=== PATIENT | male | born 1965 | race Caucasian/White ===

== ENCOUNTER 2021-04-03 12:08 | Emergency (ER) | payer BC ==
--- NOTE | 2021-04-03 12:28 | EDM.PDOC ---
ED HPI GENERAL MEDICAL PROBLEM - General Chief Complaint: Upper Extremity Injury/Pain Stated Complaint: [facility] Time Seen by Provider: 04/03/21 12:19 Source of Information: Reports: Patient, RN Notes Reviewed History Limitations: Reports: No Limitations - History of Present Illness INITIAL COMMENTS - FREE TEXT/NARRATIVE: Patient is a 55-year-old male who presents to the ER for the evaluation of his left shoulder injury. He was brought in by [facility]. He and his family were in [place], doing a trail ride when the horses got spooked by a d eer, and he ended up getting bucked off the horse. Noted that he landed on his left shoulder. He has had pain with any sort of movement of the shoulder since then. He did get some fentanyl in route to the ER via ambulance service and he notes this did help some of the pain. He is complaining of some left-handed numbness at times. He did not hit his head, he did not lose consciousness. Patient is from [facility], and has a primary care provider there. He denies any major health concerns at today's visit. Patient denies any other sick-like symptoms, fever/chills, cough/shortness of breath, nausea/vomiting/diarrhea. 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: IV/IO Left Shoulder Pain Score (Numeric/FACES): 4 - Related Data Allergies Allergy/AdvReac Type Severity Reaction Status Date / Time No Known Allergies Allergy Verified 04/03/21 12:21 Home Meds: Home Meds Hydrocodone/Acetaminophen [Hydrocodone-Acetamin 5-325 mg] 1 each PO Q6H PRN #6 tablet 04/03/21 [Rx] Lansoprazole [Prevacid] 30 mg PO BID 04/03/21 [History] Losartan [Cozaar] 25 mg PO DAILY 04/03/21 [History] Rosuvastatin Calcium [Crestor] 40 mg PO DAILY 04/03/21 [History] Past Medical History Cardiovascular History: Reports: Afib, High Cholesterol, Hypertension - Past Surgical History HEENT Surgical History: Reports: Other (See Below) Other HEENT Surgeries/Procedures: typanoplasty Cardiovascular Surgical History: Reports: Cardiac Ablation Neurological Surgical History: Reports: Intracranial Review of Systems - Review of Systems Review Of Systems: Comprehensive ROS is negative, except as noted in HPI. ED EXAM, GENERAL - Physical Exam Exam: See Below Exam Limited By: No Limitations General Appearance: Alert, WD/WN, No Apparent Distress Respiratory/Chest: No Respiratory Distress, Lungs Clear, Normal Breath Sounds, No Accessory Muscle Use, Chest Non-Tender Cardiovascular: Normal Peripheral Pulses, Regular Rate, Rhythm, No Edema Peripheral Pulses: 2+: Radial (L), Radial (R) Extremities: Normal Inspection, Normal Capillary Refill, Limited Range of Motion (of left shoulde d/t pain; no visible deformity is apparent) Neurological: Alert, Oriented, Normal Cognition, No Motor/Sensory Deficits Psychiatric: Normal Affect, Normal Mood Skin Exam: Warm, Dry, Intact, Normal Color, No Rash Course - Vital Signs Last Recorded V/S: Last Vital Signs Temp 97.2 F 04/03/21 12:13 Pulse 64 04/03/21 12:13 Resp 16 04/03/21 12:13 BP 110/78 04/03/21 12:13 Pulse Ox 100 04/03/21 12:13 - Orders/Labs/Meds Orders: Active Orders 24 hr Category Date Time Status Shoulder Comp Lt [CR] Stat Exams 04/03/21 12:23 Ordered DME for Discharge [COMM] Routine Oth 04/03/21 13:04 Ordered - Re-Assessments/Exams Free Text/Narrative Re-Assessment/Exam: 04/03/21 12:27 Patient presents to the ER for his left shoulder pain. We will go ahead and get x-rays for further evaluation. 04/03/21 13:12 X-rays have been obtained, and reviewed by myself and Dr. Ibarra, no acute fracture or other bony injury apparent, shoulder joint does appear to be within joint as well. Patient will be given a arm sling to help prevent further injury to the shoulder, I did demonstrate range of motion exercises, and he verbalized understanding. Departure - Departure Time of Disposition: 13:13 Disposition: Home, Self-Care 01 Condition: Good Clinical Impression: Injury of left shoulder Qualifiers: Encounter type: initial encounter Qualified Code(s): S49.92XA - Unspecified injury of left shoulder and upper arm, initial encounter Fall from horse Qualifiers: Encounter type: initial encounter Qualified Code(s): V80.010A - Animal-rider injured by fall from or being thrown from horse in noncollision accident, initial encounter - Discharge Information *PRESCRIPTION DRUG MONITORING PROGRAM REVIEWED*: Yes *COPY OF PRESCRIPTION DRUG MONITORING REPORT IN PATIENT [place]: No Prescriptions: Hydrocodone/Acetaminophen [Hydrocodone-Acetamin 5-325 mg] 1 each PO Q6H PRN #6 tablet PRN Reason: Pain Instructions: How To Use a Sling, [id number], Shoulder Pain, [id number] Forms: ED Department Discharge Additional Instructions: You have been evaluated in the ED for your left shoulder injury. Your x-ray demonstrated no acute fractures or any other bony abnormalities of the left shoulder joint apparent at today's visit. Please use ice as tolerated to the affected area. You have been provided with a sling, to help immobilize the shoulder for just a short amount of time to prevent further injury to the shoulder. You will need to take your arm out on a rather consistent basis throughout the days, and perform range of motion exercises like shoulder circles, and wall walks that were demonstrated to you at this ER visit. This is to make sure that you do not get frozen shoulder. You may take Tylenol 500 mg or ibuprofen 600mg q6 hrs for pain relief. Please do so until you have a tolerable level of pain with activity. Do not exceed 4000mg Tylenol or 3200mg ibuprofen in a 24 hour time period. You were given a prescription for a strong pain medication, hydrocodone/acetaminophen 5/325 mg, please take 1 tab every 6 hours as needed for pain not relieved by Tylenol or ibuprofen alone. Please note this medication does contain Tylenol in it, so do not take more than 4000 mg in a 24- hour time span. These medications can be addictive, so please take as few as possible to achieve adequate pain control. These meds can also be quite constipating, recommend that you increase your oral fluid intake and take a stool softener like MiraLAX while taking these medications. Do not drive while taking this medication. This medication was electronically sent to the [place] pharmacy located in the [facility] grocery store. If you are not finding much improvement in range of motion and/or pain of your left shoulder, when you return home, recommend you follow-up with your primary care provider, and get further imaging like MRI for further investigation of your left shoulder. Please return to ED if your symptoms should change or worsen. Sepsis Event Note (ED) - Evaluation Sepsis Screening Result: No Definite Risk - Focused Exam Vital Signs: Vital Signs Temp Pulse Resp BP Pulse Ox 04/03/21 12:13 97.2 F 64 16 110/78 100 - My Orders Last 24 Hours: My Active Orders 04/03/21 12:23 Shoulder Comp Lt [CR] Stat 04/03/21 13:04 DME for Discharge [COMM] Routine - Assessment/Plan Last 24 Hours: My Active Orders 04/03/21 12:23 Shoulder Comp Lt [CR] Stat 04/03/21 13:04 DME for Discharge [COMM] Routine
--- NOTE | 2021-04-03 14:15 | CR ---
Left shoulder: 3 views of the left shoulder were obtained. Comparison: No prior shoulder imaging is available. No abnormal inferior spurring is seen within the acromioclavicular joint. Glenohumeral joint shows minimal spurring. No acute fracture, dislocation or other bony abnormality is appreciated. Impression: 1. Mild degenerative change. 2. Nothing acute is appreciated on 3 view left shoulder study. Diagnostic code #2
== END 2021-04-03 13:35 | disposition home or self-care (01) ==
LOC: JD.ED 12:08
DX: S49.92XA Unspecified injury of left shoulder and upper arm, initial encounter (principal); I48.91 Unspecified atrial fibrillation; E78.00 Pure hypercholesterolemia, unspecified; I10 Essential (primary) hypertension; Z79.899 Other long term (current) drug therapy; V80.010A Animal-rider injured by fall from or being thrown from horse in noncollision accident, initial encounter
CPT/HCPCS: 73030-26-LT; 73030-LT; 99283; 99284-25